=== PATIENT | female | born 1990 | race Caucasian/White ===

== ENCOUNTER 2017-11-14 13:05 | Emergency (ER) | payer MEDICAID ==
[2015-01-24 12:27] VITALS: BMI 24.9
[~2017-11-14 13:05] MED LIST: IBUPROFEN600 MG PO; PERCOCET 5-3251 TAB PO
== END 2017-11-14 15:43 | disposition home or self-care (01) ==
LOC: D.ER 13:05
DX: K02.9 Dental caries, unspecified (principal); K08.89 Other specified disorders of teeth and supporting structures; F17.200 Nicotine dependence, unspecified, uncomplicated

== ENCOUNTER → 2017-12-27 12:18 | Outpatient (CLI) | payer MEDICAID ==
[2015-01-24 12:27] VITALS: BMI 24.9
== END | disposition home or self-care (01) ==
LOC: D.LDO 12:18
DX: O26.899 Other specified pregnancy related conditions, unspecified trimester (principal); Z3A.00 Weeks of gestation of pregnancy not specified

== ENCOUNTER 2018-01-26 10:15 | Inpatient (IN) | payer MEDICAID ==
[~2018-01-26] VITALS: Ht 162.6 cm; Wt 62.6 kg
[2018-01-26 11:07] VITALS: BP 128/78; Ht 162.6 cm; Wt 62.6 kg
[2018-01-26 11:19] LABS: HEMATOCRIT 32.7 % (36.0-48.0); HEMOGLOBIN 10.6 g/dL (12-16); MCH 28.6 pg (26.0-34.0); MCHC 32.4 g/dL (31.0-37.0); MCV 88.4 fL (80.0-100.0); MEAN PLATELET VOLUME 12.2 fL (7.4-10.4); RBC 3.7 10x6/uL (4.00-5.40); RDW 12.5 % (11.5-14.5); WBC 12.5 10x3/uL (4.8-10.8)
[2018-01-26 16:39] VITALS: BP 137/80
[2018-01-26 19:31] VITALS: BP 144/81
[2018-01-27 06:08] LABS: BASOPHILS 0.2 % (0-2); EOSINOPHILS 0.9 % (0-7); HEMATOCRIT 30.3 % (36.0-48.0); HEMOGLOBIN 9.7 g/dL (12-16); IMMATURE GRANULOCYTES 0.7 % (0-5); LYMPHOCYTES 25.8 % (15-50); MCH 28.1 pg (26.0-34.0); MCV 87.8 fL (80.0-100.0); MEAN PLATELET VOLUME 12.7 fL (7.4-10.4); MONOCYTES 5.8 % (2-11); NEUTROPHILS 66.6 % (40-80); PLATELET COUNT 142 10x3/uL (130-400); RBC 3.45 10x6/uL (4.00-5.40); RDW 12.5 % (11.5-14.5); WBC 11.8 10x3/uL (4.8-10.8)
[2018-01-27 07:40] VITALS: BP 112/71
[2018-01-27 19:45] VITALS: BP 136/85
[2018-01-28 08:25] VITALS: BP 118/67
[2018-01-29 06:14] LABS: RAPID PLASMA REAGIN Non Reactive (Non Reactive)
== END 2018-01-28 13:00 | disposition home or self-care (01) | DRG 774 ==
LOC: D.LD 10:15
PROVIDERS: Obstetrics & Gynecology
PROC: 10E0XZZ Delivery of Products of Conception, External Approach (ICD-10-PCS; principal; 2018-01-26)
PROC: 0HQ9XZZ Repair Perineum Skin, External Approach (ICD-10-PCS; 2018-01-26)
DX: O62.3 Precipitate labor (principal); O98.22 Gonorrhea complicating childbirth; Z3A.38 38 weeks gestation of pregnancy; Z37.0 Single live birth; O71.82 Other specified trauma to perineum and vulva; O77.0 Labor and delivery complicated by meconium in amniotic fluid